=== PATIENT | male | born 1985 | race African-American/Black ===

== ENCOUNTER 2022-10-06 11:50 | Emergency (ER) | payer MEDICAID ==
[~2022-10-06] VITALS: Ht 188 cm; Wt 138.0 kg
[2022-10-06 11:55] VITALS: BP 142/106
[2022-10-06] MEDS ORDERED: ACETAMINOPHEN 325MG TABLET PO ONE (13:15)
[2022-10-06] MEDS ORDERED: ONDANSETRON HCL 4MG TABLET PO ONE (13:15)
[2022-10-06 14:04] LABS: CLARITY URINE CLEAR (CLEAR); COLOR URINE DARK YELLOW (YELLOW); KETONES URINE TRACE (NEGATIVE); LEUKOCYTE ESTERASE URINE NEGATIVE (NEGATIVE); NITRITE URINE NEGATIVE (NEGATIVE); OCCULT BLOOD URINE 1+ (NEGATIVE); PH URINE 5.5 (4.5-8.0); PROTEIN URINE 2+ (NEGATIVE); SPECIFIC GRAVITY URINE 1.027 (1.005-1.030)
[2022-10-06 14:06] LABS: BASOPHILS % 0.1 % (0.0-2.0); HEMATOCRIT. 41.7 % (42.0-52.0); HEMOGLOBIN. 14.6 g/dL (14.0-18.0); MEAN CORPUSCULAR HEMOGLOBIN 30.6 pg (28.0-32.0); MEAN CORPUSCULAR VOLUME 87.3 fL (80.0-94.0); MEAN PLATELET VOLUME 7.5 fl (7.4-10.4); MONOCYTES % 7.2 % (2.0-8.0); NEUTROPHILS % 81.7 % (40.0-76.0); PLATELET 192 x1000/uL (130-400); RED BLOOD CELL COUNT 4.77 mill/uL (4.7-6.1); RED CELL DISTRIBUTION WIDTH 13.2 % (11.6-14.6)
[2022-10-06 14:13] LABS: CHLORIDE 96 mEq/L (98-107)
[2022-10-06] MEDS ORDERED: BENZ150C3 MT (15:12)
[2022-10-06] MEDS ORDERED: ALBU6.7H3 INH (15:12)
[2022-10-06] MEDS ORDERED: TAM75 PO (15:32)
[2022-10-06] MEDS ORDERED: ACET-2708 PO (15:53)
== END 2022-10-06 16:03 | disposition home or self-care (01) ==
LOC: ER 11:50
DX: R06.02 Shortness of breath (principal); R19.7 Diarrhea, unspecified; J11.1 Influenza due to unidentified influenza virus with other respiratory manifestations; Z20.822 Contact with and (suspected) exposure to COVID-19
CPT/HCPCS: 36415; 71045; 80053; 81003; 85025; 87426; 87804; 99284; C9803; Q0162